=== PATIENT | male | born 1970 | race Caucasian/White ===

== ENCOUNTER 2020-07-17 12:53 | Outpatient (CLI) | payer BC, SELFPAY ==
--- NOTE | 2020-07-17 | ECHO_ITS ---
Patient Info Name: Alexandro Snyder Age: 50 years : 1970 Gender: Male Ht: 71 in Wt: 187 lbs BSA: 2.07 m2 HR: 54 bpm BP: 134 / 76 mmHg Technical Quality: Good Exam Date: 07/17/2020 2:26 PM Exam Location: 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 Summary 1. Complete two-dimensional, color flow and Doppler transthoracic echocardiogram is performed. 2. Left ventricular chamber dimension is normal. 3. Left ventricular systolic function is normal, estimated at 60-65%. 4. The left ventricular diastolic function is normal. 5. E/e' 7 is not elevated. 6. Global longitudinal strain is abnormal at -15.1%. Left Ventricle E/e' 7 is not elevated. Global longitudinal strain is abnormal at -15.1%. Left ventricular chamber dimension is normal. Left ventricular systolic function is normal, estimated at 60-65%. The left ventricular diastolic function is normal. Right Ventricle Right ventricular chamber dimension is normal. Right ventricular systolic function is normal. Left Atria Left atrial chamber dimension is normal. Right Atria Right atrial chamber dimension is normal. Aortic Valve The aortic valve is trileaflet. There is no aortic valve stenosis. There is no aortic valve regurgitation. Pulmonic Valve There is no pulmonic regurgitation. Mitral Valve There is no mitral valve stenosis. There is no mitral valve regurgitation. Tricuspid Valve There is no tricuspid valve regurgitation. Pericardium/Pleural There is no pericardial effusion. Inferior Vena Cava Normal inferior vena cava with >50% collapse upon inspiration consistent with normal right atrial pressure, Empty. Aorta The aortic root size at the sinus of Valsalva is not well visualized. The aortic root size at the sinus of Valsalva is not well visualized. Left Ventricular Outflow Tract Name Value Normal LVOT 2D LVOT Diameter 2.1 cm LVOT Doppler LVOT Peak Gradient 2 mmHg LVOT Mean Gradient 1 mmHg LVOT VTI 19 cm LVOT VTI/AV VTI Ratio 0.8 LVOT Stroke Volume 65 ml LVOT CO 4.6 l/min LVOT CI 2.2 l/min/m2 Mitral Valve Name Value Normal MV Doppler MV Decel [place] 332 cm/s2 MV PHT 55 ms MV Area (PHT)
--- NOTE | ~2020-07-17 | MR_ITS ---
EXAMINATION: MR brain/brain stem wo con DATE: 07/17/2020 15:27 INDICATION: Stroke. TECHNIQUE: Magnetic resonance imaging (MRI) of the brain and brainstem was performed without intraven ous contrast. Sequences included sagittal and axial T1-weighted FSE, axial diffusion-weighted FS EPI, axial T2*-weighted GRE, axial T2-weighted FLAIR Propeller, and axial T2-weighted Propeller. Apparent diffusion coefficient (ADC) maps were created. COMPARISON: None. FINDINGS: There is no intracranial hemorrhage, acute infarction, or abnormal intracranial mass lesion . The ventricles are normal in size. There is mild mucosal thickening in the paranasal sinuses. The o rbits are normal. The mastoid air cells are normal. IMPRESSION: 1. Normal brain. Reviewed, dictated and finalized at location A. IMPRESSION: 1. Normal brain.
[2020-07-17 13:24] LABS: Basophils Absolute Auto 0.1 K/mm3 (0.0-0.1); Basophils Percent Auto 0.6 % (0.2-1.2); Eosinophils Absolute Auto 0.3 K/mm3 (0-0.3); Eosinophils Percent Auto 3.1 % (0-4.4); Hematocrit 45.8 % (42.0-52.0); Hemoglobin 16.2 g/dL (14.0-18.0); Immature Granulocyte Absolute 0.02 K/mm3 (0.00-0.031); Immature Granulocyte Percent A 0.2 % (0-0.5); Lymphocytes Absolute Auto 1.88 K/mm3 (0.9-3.2); Lymphocytes Percent Auto 22.6 % (18.3-44.2); Mean Corpuscular HGB Conc 35.4 g/dl (32-36); Mean Corpuscular Hemoglobin 30.5 pg (26-34); Mean Corpuscular Volume 86.3 fl (80-100); Mean Platelet Volume 9.4 fl (7.4-10.4); Monocytes Absolute Auto 0.6 K/mm3 (0.1-0.6); Monocytes Percent Auto 6.9 % (2.6-8.5); Neutrophils Absolute Auto 5.5 K/mm3 (1.3-6.7); Neutrophils Percent Auto 66.6 % (45.5-73.1); Platelet Count Result 259 k/mm3 (150-375); Red Blood Count 5.31 M/mm3 (4.6-6.20); Red Cell Distribution Width 12.4 % (11.5-14.5); White Blood Count 8.3 K/mm3 (4.5-10.0)
[2020-07-17 13:35] LABS: Alanine Aminotransferase 25 U/L (4-50); Alkaline Phosphatase 65 U/L (38-126); Anion Gap 6 mmol/L (8-16); Aspartate Amino Transferase 29 U/L (17-59); Bilirubin,Total 0.7 mg/dL (0.2-1.3); Blood Urea Nitrogen 13 mg/dL (9-20); Calcium 9.1 mg/dL (8.4-10.2); Carbon Dioxide 28 mmol/L (22-30); Chloride 105 mmol/L (98-107); Estimated Glomerular Filt Rate > 60; Glucose 119 mg/dL (75-110); Potassium 4.5 mmol/L (3.4-5.0); Sodium 139 mmol/L (137-145)
[2020-07-17 14:19] LABS: Free T4 Free Thyroxine 0.95 ng/mL (0.78-2.19)
--- NOTE | 2020-07-18 09:41 | WPDNEUROLOGY ---
Neurology EEG Report General Information Date of Study: 07/17/20 TEST eeg DIAGNOSIS stroke CONDITION OF RECORDING awake and drowsy EEG NUMBER [id number] CLINICAL HISTORY Patient reported he was diagnosed with [place]'s disease and just started seeing a neurologist and he wanted a some baseline testing done EEG DESCRIPTION basic resting occipital frequency consist of poorly organized low to medium voltage 8 to 9 hertz per second alpha admixed with low-voltage 15 to 18 hertz per secondnd beta. During drowsiness low-voltage beta activity seen diffusely admixed with waxing and waning poorly organized posterior alpha rhythm. Multiple movements artifacts seen throughout the tracing. During drowsiness low-voltage beta activity seen diffusely. Photic stimulation produced poor drive. Hyperventilation not done. non paroxysmal. nonfocal .nonlateralizing IMPRESSION no significant abnormalities noted
== END 2020-07-17 12:54 | disposition home or self-care (01) ==
PROVIDERS: Visit Provider Psychiatry & Neurology Neurology
DX: I49.9 Cardiac arrhythmia, unspecified (principal); I63.9 Cerebral infarction, unspecified
CPT/HCPCS: 36415; 70551; 80053; 84439; 84443; 85025; 93306; 95816

== ENCOUNTER 2021-10-02 16:00 | Outpatient (RCR) | payer OTHER, SELFPAY ==
--- NOTE | 2021-08-21 16:47 | PTOPEVAL ---
PHYSICAL THERAPY EVALUATION AND PLAN OF CARE Thank you for referring Alexandro Snyder to [facility].? The patient is scheduled to be seen for therapy? 1x/week for 4-8 weeks. Please review, sign, date and return this plan of care DAPHNEY. I agree with and certify that the following plan of care is medically necessary. 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 States Family that his balance is very affected. States that he has falled a couple of times - 2 times due to a chair with wheels sliding out from under him. He is able to get himself up from the ground from a fall. Self Report Self Report Pain Level 0 Pain Score Pain Score 0: Self Report Upper Extremity Range of Motion General Upper Extremity Range of Motion Reason Not Measured WFL/Left,WFL/Right Gross Upper Extremity Range of Motion all motions are jerky and Comments uncoordinated - noemi's chorea movements disdyadochokinesia Lower Extremity Range of Motion General Lower Extremity Range of Motion Reason Not Measured WFL/Left,WFL/Right Gross Lower Extremity Range of Motion disdyadochokinesia Comments Lower Extremity Muscle Strength Testing General Lower Extremity Strength Reason Not Measured WFL/Left,WFL/Right Gross Lower Extremity Strength generally he does have functional strength; Alexandro is very good at using his body to compensate for any defiicts in strength; his right ankle eversion measures ~3+/5 but it is difficult to tell because he pulls in the entire leg to assist with the activity; SLS: right ~8seconds; left ~2- 3seconds Upper Extremity Muscle Strength Testing General Upper Extremity Strength Reason Not Measured WFL/Left,WFL/Right Balance Assessment Deluna Balance Assessment Sitting to Standing Independent w/out Hands Unsupported Stance Ability Supervision- 2 minutes Sitting Unsupported, Feet on Floor Safely- 2 minutes Standing to Sitting Safely, Minimal Hand Use Transfer Ability Safely,
--- NOTE | 2021-09-11 16:24 | PCPTNOTE ---
Patient called & cancelled scheduled appointment this date due to going out of town.
--- NOTE | 2021-09-18 17:02 | PTOPEVAL ---
PHYSICAL THERAPY PROGRESS REPORT AND DISCHARGE PLANNING Thank you for referring Alexandro Snyder to [facility].? The patient is scheduled to be seen for therapy? 1x/week for _2 weeks. Please review, sign, date and return this plan of care DAPHNEY. I agree with and certify that the following plan of care is medically necessary. 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 He has had no falls Family recently. Pain Score Pain Score 0: Self Report Lower Extremity Muscle Strength Testing General Lower Extremity Strength Reason Not Measured WFL/Left,WFL/Right Gross Lower Extremity Strength generally he does have functional strength; Alexandro is very good at using his body to compensate for any defiicts in strength; his right ankle eversion measures ~4/5 with some compensation from LE; SLS : right ~8seconds; left ~2- 3seconds Balance Assessment Deluna Balance Assessment: 46/56 points) Comments 1month ago = 33/56 Time Up Go (TUG) Timed Up and Go Test (TUG) (Seconds) 9 Assistive Devices None Comments 1month ago: 11 seconds 5 Time Sit to Stand Time in Seconds 9.76 5 Time Sit to Stand Comments 1month ago = 12.49seconds Gait Assessment Gait Pattern Assessment Gait Pattern Ataxic Gait,Spastic Gait Other Gait Observations gait pattern significantly improved today: initially was striking mid to forefoot on right foot -- today he demonstrates a solid heel strike with bilateral feet and the right ankle does not demonstrate nearly any inversion moments when he is performing concentrated walking; When he is just walking from to place to place in the gym I do notice an occasional right ankle inversion moments 6 Minute Walk Total Distance (feet) 1,387 6 Minute Walk Gait Speed Score (feet/ 3.85 second) 6 Minute Gait Comments 1month ago = 1287ft (3.57
--- NOTE | 2021-10-08 17:32 | PCPTNOTE ---
PHYSICAL THERAPY DISCHARGE NOTE Patient:Alexandro Snyder Date of :1970 Per last progress note on 09/18/2021, patient is now discharged after participating in two more visits of PT with BRE [facility]. Thank you for referring this patient to [facility]. Please review, sign, date and return this discharge summary DAPHNEY. I have been updated about the patient's current status and I agree with discharge from the above service at this time. Referring Physician Date
== END 2021-10-09 13:27 | disposition home or self-care (01) ==
LOC: ANHPT 16:00
PROVIDERS: PCP Nurse Practitioner
DX: G10 Huntington's disease (principal)
CPT/HCPCS: 97110; 97163

== ENCOUNTER 2024-01-07 14:09 | Outpatient (CLI) | payer OTHER, SELFPAY ==
[2024-01-07 19:02] LABS: Basophils Absolute Auto 0.1 K/mm3 (0.0-0.1); Basophils Percent Auto 0.5 % (0.2-1.2); Eosinophils Absolute Auto 0.1 K/mm3 (0-0.3); Eosinophils Percent Auto 0.6 % (0-4.4); Hematocrit 49.6 % (42.0-52.0); Hemoglobin 16.9 g/dL (14.0-18.0); Immature Granulocyte Absolute 0.04 K/mm3 (0.00-0.031); Immature Granulocyte Percent A 0.3 % (0-0.5); Lymphocytes Absolute Auto 1.54 K/mm3 (0.9-3.2); Lymphocytes Percent Auto 13.1 % (18.3-44.2); Mean Corpuscular HGB Conc 34.1 g/dl (32-36); Mean Corpuscular Hemoglobin 30.6 pg (26-34); Mean Corpuscular Volume 89.7 fl (80-100); Mean Platelet Volume 10.1 fl (7.4-10.4); Monocytes Absolute Auto 0.8 K/mm3 (0.1-0.6); Monocytes Percent Auto 6.5 % (2.6-8.5); Neutrophils Absolute Auto 9.3 K/mm3 (1.3-6.7); Platelet Count Result 256 k/mm3 (150-375); Red Blood Count 5.53 M/mm3 (4.6-6.20); Red Cell Distribution Width 12.8 % (11.5-14.5); White Blood Count 11.7 K/mm3 (4.5-10.0)
[2024-01-07 19:24] LABS: Alanine Aminotransferase 44 U/L (6-50); Albumin Level 4.5 g/dL (3.5-5.1); Alkaline Phosphatase 72 U/L (38-126); Anion Gap 8 mmol/L (4-12); Aspartate Amino Transferase 52 U/L (17-59); Bilirubin,Total 0.7 mg/dL (0.2-1.3); Blood Urea Nitrogen 25 mg/dL (9-20); Calcium 10.1 mg/dL (8.4-10.2); Carbon Dioxide 28 mmol/L (22-30); Chloride 106 mmol/L (98-107); Cholesterol 208 mg/dL (0-200); Estimated Glomerular Filt Rate > 60; Glucose 123 mg/dL (65-110); HDL Direct 43 mg/dL; Potassium 4.4 mmol/L (3.4-5.0); Sodium 142 mmol/L (137-145); Triglycerides 245 mg/dL (<150)
[2024-01-07 19:35] LABS: LDL Cholesterol Direct 127 mg/dL
[2024-01-07 19:44] LABS: Vitamin D 25 Hydroxy 44.2 ng/mL
== END 2024-01-07 14:10 | disposition home or self-care (01) ==
LOC: ANHGOSHLAB 14:10
PROVIDERS: PCP Family Medicine; Visit Provider Nurse Practitioner Family
DX: G10 Huntington's disease (principal); G80.9 Cerebral palsy, unspecified; J45.909 Unspecified asthma, uncomplicated; R73.03 Prediabetes; Z82.0 Family history of epilepsy and other diseases of the nervous system; E78.5 Hyperlipidemia, unspecified; Z12.5 Encounter for screening for malignant neoplasm of prostate; Z13.29 Encounter for screening for other suspected endocrine disorder; Z00.00 Encounter for general adult medical examination without abnormal findings; E53.8 Deficiency of other specified B group vitamins; E55.9 Vitamin D deficiency, unspecified
CPT/HCPCS: 36415; 80053; 80061; 82306; 82607; 83036; 84153; 84443; 85025; G0103

== ENCOUNTER 2024-11-16 11:00 | Outpatient (RCR) | payer MEDICARE, OTHER, SELFPAY ==
--- NOTE | 2024-09-07 10:08 | OPREHPOC ---
Outpatient Therapy Plan of Care This is a Multidisciplinary Plan of Care that may contain components documented by all disciplines (PT, OT, and ST.) PT Problem 1 PT Problem #1 Knowledge Deficit PT Goal 1 Goal / Goal Update *indep with HEP Target Visit 10 PT Problem 2 PT Problem #2 Impaired Functional Mobility PT Goal 1 Goal / Goal Update improve balance to decrease risk for falls and improve mobility * Deluna balance score of 49/56 * assess need for assistive device Target Visit 10 PT Goal 2 Goal / Goal Update * 5 reps sit/stand time of 16 seconds without thigh touching chair seat Target Visit 10 PT Problem 3 PT Problem #3 Impaired Strength PT Goal 1 Goal / Goal Update * static stand time of 80 seconds, to improve stability with standing Target Visit 10 PT Goal 2 Goal / Goal Update * pt ambulate 425' with 2 minute walking test and no toe drag R Target Visit 10
--- NOTE | 2024-09-07 10:08 | PTOPEVAL1 ---
Assessment and note entered by Kym Peralta, PT Evaluation Information Assessment Status Evaluation ICD-10 Condition Codes (PT) Difficulty Walking R26.2,Abnormalities of gait and mobility R26.9,Weakness R53.1 Other ICD-10 Condition Codes ( Iftikhar's Disease PT) Onset March 2024 Subjective Information have not had any falls, but unsteady with walk; have a cane, rarely use; walks in [address], [facility], use the treadmill; do not do any other exercises other than walking- at least 20 minutes at time; activity: have assist for cooking, cleaning, transportation, shopping; indep with bathing and dressing; do have seat and grab bars for his , but he rarely uses them. Goal: get better balance; Reported Pain Level Pain Score 0: Self Report Assessment PT Clinical Summary Toi has the diagnosis of decrease gait and balance skills. 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 His and caregiver question if he needs a cane or walker to help him walk. He has not had any falls. At home, caregiver and do all home tasks. With the evaluation, he has increased tone in UE and LE's with decreased motor control; static standing is decreased to 43 seconds; 5 reps sit/ stand time of 19 seconds; Deluna balance score of 42/56; 2 minute walking test distance of 375'; gait pattern with decreased motor control and R medial foot drags the ground with swing through; he does not walk a straight path. Skilled PT services are indicated to increase strength and motor control of LE, improve gait pattern and balance, with education to pt and caregiver. Assess need for assistive device. Plan of Care Interventions Gait Training,Neuro Re-education,Patient/Caregiver Education,Therapeutic Activities,Therapeutic Exercise PT Services Indicated Yes Treatment Frequency and 1-2x/wk for 10 visits Duration These treatments will address the objective and functional deficits as defined above. The patient will be advanced safely and appropriately in order for the patient to progress towards his/her prior level of function. Additional exercises will be introduced and as well as a comprehensive home exercise program upon discharge, if needed, ?to ensure carryover of functional gains achieved in the clinic. This treatment plan has been reviewed and agreement upon by the patient.
--- NOTE | 2024-09-30 11:01 | PCPTNOTE ---
Patient cancelled therapy this date due to inclement weather.
--- NOTE | 2024-10-26 10:40 | PCPTNOTE ---
Patient did not show up for scheduled appointment this date.
--- NOTE | 2024-11-04 09:23 | PCPTNOTE ---
Patient cancelled today's visit secondary to illness.
--- NOTE | 2024-11-16 16:22 | OPREHPOC ---
Outpatient Therapy Plan of Care This is a Multidisciplinary Plan of Care that may contain components documented by all disciplines (PT, OT, and ST.) PT Problem 1 PT Problem #1 Knowledge Deficit PT Goal 1 Goal / Goal Update *indep with HEP 11/16/24: met Target Visit 10 Progress Met PT Problem 2 PT Problem #2 Impaired Functional Mobility PT Goal 1 Goal / Goal Update improve balance to decrease risk for falls and improve mobility * Deluna balance score of 49/56 * assess need for assistive device 11/16/24: 1. not met 2. met, using cane Target Visit 10 Progress Partially Met PT Goal 2 Goal / Goal Update * 5 reps sit/stand time of 16 seconds without thigh touching chair seat 11/16/24: 1. met, 15s Target Visit 10 Progress Met PT Problem 3 PT Problem #3 Impaired Strength PT Goal 1 Goal / Goal Update * static stand time of 80 seconds, to improve stability with standing 11/16/24: 1. met, 2 mins Target Visit 10 PT Goal 2 Goal / Goal Update * pt ambulate 425' with 2 minute walking test and no toe drag R 11/16/24: 1. partially met, decreased speed, improved control and foot clearance Target Visit 10 Progress Partially Met
--- NOTE | 2024-11-16 16:22 | PTOPDC ---
Assessment and note entered by Cristhian Barbour, PT, DPT Evaluation Information Assessment Status Discharge Diagnosis Iftikhar's ICD-10 Condition Codes (PT) Difficulty Walking R26.2,Abnormalities of gait and mobility R26.9,Weakness R53.1 Other ICD-10 Condition Codes ( Iftikhar's Disease PT) Onset March 2024 Subjective Information Pt states it feels like his balance has improved some since starting therapy. He reports no falls since starting therapy. Pt states he now feels comfortable to pick something up off the ground if he drops something. States his walking has improved but he is still off balance at times. Reported Pain Level Pain Score 0: Self Report Assessment PT Clinical Summary Pt has completed 9 visits of skilled therapy to treat his balance and gait deficits. Today he demonstrates improve static balance, improved safety with ambulation, and improved awareness when preforming balance challenges. His gait speed and balance scores continues to place him at an increased risk of falls, however pt reports a decreased fear of falling. Pts HEP was progressed. Pt will be discharged from skilled therapy services at this time with instructions to cont his HEP and to follow up with his provider if he needs additional therapy at later date.
== END 2024-11-17 10:46 | disposition home or self-care (01) ==
LOC: ANHGOSHPT 11:00
PROVIDERS: PCP Family Medicine
DX: G10 Huntington's disease (principal)
CPT/HCPCS: 97110; 97112; 97116; 97161; 97530; 97750

== ENCOUNTER 2025-08-08 14:00 | Outpatient (NON) | payer MEDICARE, SELFPAY ==
[2025-08-08 18:34] LABS: Add Urine Microscopic? NO; Appearance Urine Clear (Clear); Glucose Urine UA Negative (Negative); Leukocyte Esterase Ur Negative LEU/UL (Negative); Nitrate Urine Negative (Negative); Specific Grav Ur 1.027 (1.001-1.035)
== END 2025-08-08 14:01 | disposition home or self-care (01) ==
LOC: ANHGOSHLAB 14:01
PROVIDERS: PCP Nurse Practitioner Family; Visit Provider Nurse Practitioner Family
DX: R35.0 Frequency of micturition (principal)
CPT/HCPCS: 81003

== ENCOUNTER 2025-08-09 10:56 | Outpatient (CLI) | payer MEDICARE, SELFPAY ==
[2025-08-09 13:05] LABS: Hematocrit 47.1 % (42.0-52.0); Hemoglobin 16.5 g/dL (14.0-18.0); Immature Granulocyte Percent A 0.4 % (0-0.5); Lymphocytes Absolute Auto 1.47 K/mm3 (0.9-3.2); Mean Corpuscular HGB Conc 35.0 g/dl (32-36); Mean Corpuscular Hemoglobin 30.8 pg (26-34); Mean Corpuscular Volume 87.9 fl (80-100); Nucleated Red Blood Cells Absolute Auto 0.000 K/mm3 (0.0-0.012); Nucleated Red Blood Cells Perc 0.0 % (0.0-0.2); Platelet Count Result 226 k/mm3 (150-375); Red Blood Count 5.36 M/mm3 (4.6-6.20); White Blood Count 10.5 K/mm3 (4.5-10.0)
[2025-08-09 15:56] LABS: Thyroid Stimulating Hormone Reflex 1.990 uIU/mL (0.465-4.68)
--- OUTSIDE RECORDS SUMMARY | 2025-08-09 15:56 | XMS_ITS | Clinical Summary ---
Author Organization [facility] Address [facility] [place] [address] Care Team Providers Care Utility Worker [employer] Name Role Phone Sandi CavazosW Unavailable [phone] Ashley Urbina MD Primary Care Provider Allergies Active Allergy Reactions Criticality Noted Date Comments Penicillins Unknown 1970 Medications montelukast (SINGULAIR) 10 mg tablet montelukast 10 mg tablet Active traZODone (DESYREL) 50 mg tablet trazodone 50 mg tablet Active albuterol HFA (ProAir HFA) 90 mcg/actuation inhaler ProAir HFA 90 mcg/actuation aerosol inhaler Active loratadine (CLARITIN) 10 mg tablet Take 10 mg by mouth daily Active melatonin 5 mg tablet Active risperiDONE (RisperDAL) 0.5 mg tabletIndicatio ns:[place] disease Take 2 tablets (1 mg total) by mouth 2 (two) times a day 360 tablet 3 5 Active Active Problems Problem Noted Date Diagnosed Date Other insomnia 02/04/2023 [place] disease 12/19/2020 Assessment & Plan (07/25/2024 12:31 PM CATERER'S AIDE): Mr. Alexandro Snyder is a 52 y.o. male, who presents for follow-up for HD with insomnia. He is well controlled since the last visit. Chorea is not bothersome and risperidone has helped. It causes some mild sedation, but he can handle it. Balance is a bit off and he has a walker that he sometimes uses it. He could benefit from Pt will send rx. He had some throwing up episode when he ate fast, will send for barium swallow eval. Sleep is ok with melatonin and trazodone as needed. Cognition is ok, he is able to do ADLs and manage his medication, but it is not as good as it was before. Mood was good. Overall, he is stable and does not need medication changes. Plan: Continue risperidone and trazodone at the same dose. Start Pt will send rx ST for barium swallow eval 4. Strict fall and swallow evaluation Potential medication side effects were discussed during the encounter. Assessment & Plan (02/04/2023 5:14 PM CDT): Mr. Alexandro Snyder is a 52 y.o. male, who presents for follow-up for HD with insomnia. He is well controlled since the last visit. Chorea is not bothersome and risperidone has helped. It causes some mild sedation, but he can handle it. Balance is a bit off and he has a walker that he sometimes uses it. Sleep is ok with melatonin and trazodone as needed. Cognition is ok, he is able to do ADLs and manage his medication, but it is not as good as it was before. Mood has some periods of anxiety that are manageable. Overall, he is stable and does not need medication changes. He could benefit from PT, but opted not to do at this time. Plan: 1. Continue risperidone and trazodone at the same dose. 2. Can consider PT if balance worsens. Potential medication side effects were discussed during the encounter. Assessment & Plan (01/31/2022 8:38 AM CDT): Mr. Alexandro Snyder is a 51 y.o. male, who presents for follow-up for HD. He is better since risperidone started, with less movements. His balance is better after therapy. His swallowing is not as good and he is more careful when he eats. He is doing well from HD perspective and does not need to change risperidone. We will send him to a barium swallow test so that we can assess the degree of dysphagia. - Continue risperidone at the current dose. - Referral to Barium Swallow Study. Potential medication side effects were discussed during the encounter. Assessment & Plan (07/25/2021 10:06 AM CDT): Mr. Alexandro Snyder is a 51 y.o. male, who presents for follow-up for Iftikhar's disease. 1. [place]'s disease. Overall, he is better since the last visit. Risperidone has helped with some of the chorea, but his thinks the chorea remains problematic, particularly with feeding. He still has periods of worsening of the chorea if he is tired. He asked about physical therapy to help with the gait and disability. - Referral to PT. - Increase risperidone 0.5 mg to 2 tablets twice a day. - He will discuss disability with Sandi Herrmann. Potential medication side effects were discussed during the encounter. Assessment & Plan (12/19/2020 2:04 PM CDT): Mr. Alexandro Snyder is a 50 y.o. male, who presents for evaluation of HD. His symptoms started at least five years ago, when people noted he walked differently. At that time, the involuntary movements were also noted. Since then, he has had progressive balance issues and had a couple of falls. 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 Currently, he is bothered by the balance. He did not try any medications before. There is family history of HD, including mother, sister and maternal grandmother. 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 History and examination are compatible with HD. We discussed treatment strategies for HD. Controlling the chorea may bring some benefits in terms of balance, but he also has wide based gait which will not improve with the medication. He should have an evaluation with PT for gait safety. Plan: 1. HD. - Start risperidone 0.5 mg with titration to 1 tablet twice a day. Titration schedule was given. Additional doses changes may be needed. - Referral to physical therapy. Potential medication side effects were discussed during the encounter. Medical History Medical History Date Comments Asthma Family History Medical History Relation Name Comments [place]'s disease Maternal Grandmother Iftikhar's disease Mother [place]'s disease Sister Relation Name Status Comments Maternal Grandmother Mother Sister Social History Tobacco Use Types Packs/Day Years Used Date Smoking Tobacco: Unknown Tobacco Cessation:Counseling Given: Not Answered Sex and Gender Information Value Date Recorded Sex Assigned at Not on file Legal Sex Male 3:44 PM CATERER'S AIDE Gender Identity Male 12/11/2020 8:01 PM CDT Sexual Orientation Straight 12/11/2020 8: 01 PM CDT Occupation Industry Job Start Date Job End Date Supervisor [employer] Not on file Not on file Not on file Last Filed Vital Signs Vital Sign Reading Time Taken Comments Blood Pressure 136/67 12/19/2020 3:01 PM CDT Pulse 91 12/19/2020 3:01 PM CDT Temperature 36.7 C (98.1 F) 12/19/2020 3:01 PM CDT Respiratory Rate - - Oxygen Saturation - - Inhaled Oxygen Concentration - - Weight 83.2 kg (183 lb 6.4 oz) 12/19/2020 3:01 P M CDT Height 179.1 cm (5' 10.5) 12/19/2020 3:01 PM CD T Body Mass Index 25.94 12/19/2020 3:01 PM CDT Plan of Treatment Health Maintenance Due Date Last Done Comments Colon Cancer Screening-Colonoscopy 1970 Depression Screening 1970 Hepatitis C Screening 1970 Prostate Cancer Screening-PSA 1970 DTaP/Tdap/Td Vaccine (1 - Tdap) 1979 Hepatitis B Screening 1986 Regular Well Visit/Exam 18-64 1986 Zoster Vaccine (1 of 2) 2018 Influenza Vaccine (#1) 2025 0, 08/12/2019, 08/02/2018 Pneumococcal vaccine <65 Aged Out No longer eligible based on patient's age to complete this topic Insurance MEDICARE [employer] OPEN ACCESS MEDICARE [employer] MEDICARE SUPPLEMENT Care Teams Utility Work[employer] Relationship Specialty Start Date End Date Ashley Urbina MD [address] [facility] [address] [place] [address] PCP - General Family Practice 01/07/24 Sandi Cavazos LCSW [address] [place] [address] Wet Process [facility] Orderly 11/13/21
[2025-08-09 16:05] LABS: Alanine Aminotransferase 21 U/L (6-50); Albumin Level 4.2 g/dL (3.5-5.1); Alkaline Phosphatase 82 U/L (38-126); Anion Gap 7 mmol/L (4-12); Aspartate Amino Transferase 29 U/L (17-59); Bilirubin,Total 0.9 mg/dL (0.2-1.3); Blood Urea Nitrogen 21 mg/dL (9-20); Calcium 9.3 mg/dL (8.4-10.2); Carbon Dioxide 27 mmol/L (22-30); Chloride 104 mmol/L (98-107); Cholesterol 213 mg/dL (0-200); Estimated Glomerular Filt Rate > 60; Glucose 105 mg/dL (65-110); HDL Direct 40 mg/dL; Magnesium 2.1 mg/dL (1.6-2.3); Potassium 4.2 mmol/L (3.4-5.0); Sodium 138 mmol/L (137-145); Total Protein 7.5 g/dL (6.3-8.2); Triglycerides 87 mg/dL (<150)
[2025-08-09 17:53] LABS: Prostate Specific Antigen 0.9 ng/mL (< OR = 4.0)
[2025-08-09 18:12] LABS: Vitamin B12 818.0 pg/mL (239-931)
[2025-08-09 20:21] LABS: Hemoglobin A1C 5.4 % (<5.7)
== END 2025-08-09 10:57 | disposition home or self-care (01) ==
LOC: ANHGOSHLAB 10:57
PROVIDERS: PCP Nurse Practitioner Family; Visit Provider Nurse Practitioner Family
DX: Z00.00 Encounter for general adult medical examination without abnormal findings (principal); R73.9 Hyperglycemia, unspecified; J45.20 Mild intermittent asthma, uncomplicated; E78.5 Hyperlipidemia, unspecified; G47.00 Insomnia, unspecified; Z12.5 Encounter for screening for malignant neoplasm of prostate; E55.9 Vitamin D deficiency, unspecified
CPT/HCPCS: 36415; 80053; 80061; 82306; 82607; 83036; 83735; 84153; 84443; 85025; G0103